=== PATIENT | female | born 1960 | race Hispanic/Latino ===

== ENCOUNTER 2024-07-26 18:44 | Emergency (ER) | payer SELFPAY ==
[2024-07-26 18:46] VITALS: BP 177/93
--- NOTE | 2024-07-26 19:32 | ED.GENMED ---
History of Present Illness
General
Chief Complaint: Musculo-Skeletal Complaint
Source: patient and family
Exam Limitations: none
Time Seen by Provider: 07/26/24 19:15
History of Present Illness
History of Present Illness:
FOOSH injury. Complaining of right wrist pain. Hit her buttock but does not hurt significantly. No head injury. No thinners. No pain with ambulation.
Past History
Past History
ED Past Medical History: HTN and NIDDM
ED Past Surgical History: Cholecystectomy
Social History
Tobacco: Non-smoker
Alcohol: None
Living: with family
Review of Systems
Review of Systems
All Other Systems: Not applicable
Phy Exam
Physical Exam
Physical Exam:
TRAUMA EXAM:
VITAL SIGNS: Vital signs reviewed, cooperative
DISTRESS: No active disease
FACE AND SCALP: No scalp or facial trauma
NECK: Supple nontender
BACK: Back nontender
RESPIRATORY: No distress, breath sounds normal, no tender chest wall
CARDIAC: No murmur, pulses equal and strong
SKIN: Skin intact no bleeding, color normal
EXTREMITIES: Deformity to the right wrist. No open fracture. Strong distal pulses and color. Capillary refill intact. No elbow tenderness. No shoulder tenderness.
NEUROLOGICAL: Alert, oriented, no motor deficits
PSYCH: Mood affect normal
Course
Orders/Labs/Results
Orders:
Orders
07/26/24 18:48
Wrist, Right 3 Views [CR Wrist - Right Min 3 Views] Urgent
Comment:
Reason For Exam: pain
07/26/24 19:30
Sling Right-Treatment ONCE
Volar Right-Treatment ONCE
Hydrocodone 5/APAP 325 [[place] 5/325] 1 tablet PO NOW STA
Ibuprofen [Motrin] 600 mg PO NOW STA
Vital Signs
Initial and Last Documented VS:
Initial Vital Signs
Temp Pulse Resp BP Pulse Ox
98.2 F 85 18 177/93 99
07/26/24 18:46 07/26/24 18:46 07/26/24 18:46 07/26/24 18:46 07/26/24 18:46
Last Documented Vital Signs
Temp Pulse Resp BP Pulse Ox
98.2 F 85 18 177/93 99
07/26/24 18:46 07/26/24 18:46 07/26/24 18:46 07/26/24 18:46 07/26/24 18:46
MDM/Problems Addressed
Differential Diagnosis Includes:
No other significant trauma. X-ray sent to orthopedics. Splint and follow-up. Will need surgery.
*Radiology
Radiology exam reviewed: radiology read reviewed
*Pulse Oximetry
Patient hypoxic: no
*Critical Care Note
Total Time (30-74mins, 75-104mins- exclusive of procedures): Not Applicable
ED Attending Note
-
Portions of this chart may have been created with voice recognition software.� Occasional wrong word or��sound alike� substitutions may have occurred due to the inherent limitations of voice recognition software.
Discharge Plan
Departure
Patient Disposition: Home (Routine Discharge)
Date of Disposition: 07/26/24
Time of Disposition: 19:36
Patient with high blood pressure during this ER visit?: Yes
Discharge Problem:
Comminuted Colles' fracture right wrist, Buttock contusion
Instructions: Wrist Fracture (DC), BLOOD PRESSURE
Prescriptions:
New
hydrocodone-acetaminophen 5-300 mg tablet
1 tab PO Q6H PRN (Reason: Pain) Qty: 14 0RF
No Action
ibuprofen 600 MG tablet
600 mg PO Q6HPRN PRN (Reason: pain) Qty: 30 0RF
docusate sodium [Colace] 100 mg capsule
100 mg PO BID Qty: 60 0RF
Referrals:
Christopher Porter MD [Active] - Tomorrow
Activity Restrictions/Additional Instructions:
The prescription was sent to your pharmacy. It is for the stronger pain medication. The stronger pain medicine may make you groggy
Advil or Motrin for milder pain
Call the orthopedist first thing in the morning. They will see you in the next few days
Interventions
Interventions:
*Risk Screen - Suicide Last Done: 07/26/24 18:46
*General Assessment Last Done: 07/26/24 18:46
*Neglect/Abuse Screening Last Done: 07/26/24 18:46
*ED COVID-19 Vaccine History Last Done: 07/26/24 18:46
Discharge Date and Time
Print Language: FINNISH
[2024-07-26] MEDS: NORCO 5/325 1 TABLET PO (20:06)
[2024-07-26] MEDS: MOTRIN 600 MG PO (20:07)
[2024-07-26 20:44] VITALS: BP 174/93
== END 2024-07-26 20:47 | disposition home or self-care (01) ==
LOC: EMR 18:44
PROVIDERS: EMERGENCY PHYSICIAN Emergency Medicine
DX: S52.531A Colles' fracture of right radius, initial encounter for closed fracture (principal); S30.0XXA Contusion of lower back and pelvis, initial encounter; W18.39XA Other fall on same level, initial encounter; I10 Essential (primary) hypertension; E11.9 Type 2 diabetes mellitus without complications; Z90.49 Acquired absence of other specified parts of digestive tract
CPT/HCPCS: 99283; 29125; 73110